=== PATIENT | female | born 1955 | race Caucasian/White ===

== ENCOUNTER → 2024-04-12 09:45 | Outpatient (REF) | payer MEDICARE, OTHER, SELFPAY | LOC: WDC 09:45 | PROVIDERS: ATTENDING PHYSICIAN Nurse Practitioner | DX: Z12.31 Encounter for screening mammogram for malignant neoplasm of breast (principal) | CPT/HCPCS: 77063; 77067 ==

== ENCOUNTER → 2025-03-21 13:08 | Outpatient (REF) | payer MEDICARE, OTHER, SELFPAY | LOC: RAD 13:08 | PROVIDERS: ATTENDING PHYSICIAN Internal Medicine Endocrinology, Diabetes & Metabolism; FAMILY PHYSICIAN Nurse Practitioner | DX: M81.0 Age-related osteoporosis without current pathological fracture (principal) | CPT/HCPCS: 77080; 77081 ==